=== PATIENT | female | born 1970 | race African-American/Black ===

== ENCOUNTER 2017-11-23 20:41 | Emergency (ER) | payer OTHER | END 2017-11-23 23:48 | disposition home or self-care (01) | LOC: ERS 20:41 | DX: Z48.01 Encounter for change or removal of surgical wound dressing (principal); F41.9 Anxiety disorder, unspecified; I50.9 Heart failure, unspecified; I25.2 Old myocardial infarction; Z79.899 Other long term (current) drug therapy; Z79.82 Long term (current) use of aspirin | CPT/HCPCS: 99282 ==

== ENCOUNTER 2019-02-23 09:38 | Outpatient (CLI) | payer OTHER ==
--- NOTE | 2019-02-23 17:08 | EKG ---
Test Reason : Blood Pressure : / mmHG Vent. Rate : 066 BPM Atrial Rate : 066 BPM P-R Int : 126 ms QRS Dur : 080 ms QT Int : 402 ms P-R-T Axes : 061 018 040 degrees QTc Int : 421 ms Normal sinus rhythm Normal ECG When compared with ECG of 27-DEC-2005 18:07, No significant change was found Confirmed by DR. Catarino TOLNETINO ([id number]) on 02/23/2019 5:08:25 PM Referred By: FAIZA Confirmed By:DR. Catarino TOLENTINO
== END 2019-02-23 09:39 | disposition home or self-care (01) ==
LOC: EKG 09:38
PROVIDERS: ATTEND Psychiatry & Neurology Neurology
DX: Z02.71 Encounter for disability determination (principal); I25.9 Chronic ischemic heart disease, unspecified
CPT/HCPCS: 93005; 93010